=== PATIENT | female | born 1990 | race American Indian/Alaskan Native ===

== ENCOUNTER 2018-11-27 23:06 | Emergency (ER) | payer MEDICAID ==
[2018-11-28] MEDS ORDERED: TYLENOL PO ONE (02:44)
[2018-11-28] MEDS ORDERED: TYLENOL ONE (02:45)
[2018-11-28] MEDS ORDERED: TETRACAINE 0.5% OU ONE (02:46)
[2018-11-28] MEDS ORDERED: FUL-GLO OP ONE (02:46)
[2018-11-28] MEDS ORDERED: BSS OU ONE (02:46)
[2018-11-28] MEDS ORDERED: TESSALON PERLES PO ONE (05:01)
--- NOTE | 2018-11-28 05:05 | Emergency Department Report ---
[facility] Chief Complaint: Eye Problems Stated Complaint: EYE PAIN COUGH Time Seen by Provider: 11/28/18 04:45 Duration: 3 Days Side: Right Severity: mild Symptoms: Yes Eye Itching, Yes Eye Redness, Yes Mucous Drainage, Yes Preceding URI, No Eye Pain, No Purulent Drainage, No Blurred Vision, No Contact Lens Use, No Trauma, No Fever Other History: 28-year-old -[place] female comes in with right eye redness and irritation. Patient also complains of cough that she's had for 1 week. She reports she's tried [id number] Robitussin. She denies any fever chills no nausea no vomiting. She does admit to increased oral mucous. She reports she felt that this what triggers her cough. ED Review of Systems ROS: Stated complaint: EYE PAIN COUGH Other details as noted in HPI Comment: All other systems reviewed and negative Eyes: eye discharge Respiratory: cough ED Past Medical Hx - Past Medical History Previous Medical History?: No - Surgical History Past Surgical History?: Yes Additional Surgical History: C section - Social History Smoking Status: Current Every Day Smoker - Medications Home Medications: Home Medications Medication Instructions Recorded Confirmed Last Taken Type Benzonatate [Tessalon Perle] 100 mg PO TID PRN #30 capsule 11/28/18 Unknown Rx Cetirizine HCl/Pseudoephedrine 1 each PO BID #30 tab.er.12h 11/28/18 Unknown Rx [Zyrtec-D Tablet] Erythromycin [Erythromycin Ophth 1 applic OD QID 10 Days #1 tube 11/28/18 Unknown Rx Oint] [facility] Exam - Exam General: Vital signs noted. No distress. Alert and acting appropriately. Eye Exam: Right Injection, Right Mucous Discharge, Right Fluorescein Uptake, Neither Abnormal Pupil, Neither Photophobia HEENT: No Nasal Congestion, No Pharyngeal Erythema Remainder of HEENT: Normal Lungs: Yes Cough, No Good Air Exchange, No Wheezes, No Stridor ED Course Vital Signs 11/28/18 00:09 Temperature 98.6 F Pulse Rate 103 H Respiratory 18 Rate Blood Pressure 167/100 O2 Sat by Pulse 100 Oximetry ED Medical Decision Making - Medical Decision Making Patient has been evaluated by this provider in fast track. Discussed patient she has a conjunctivitis and a cough. We'll discharge patient home on Zyrtec study, erythromycin ophthalmic ointment and Tessalon Perles. Advised patient to follow up with a primary care provider if her symptoms persist or gets worse. Critical care attestation.: If time is entered above; I have spent that time in minutes in the direct care of this critically ill patient, excluding procedure time. ED Disposition Clinical Impression: Cough Conjunctivitis Qualifiers: Conjunctivitis type: acute Acute conjunctivitis type: unspecified Laterality: right Qualified Code(s): H10.31 - Unspecified acute conjunctivitis, right eye Disposition: - TO HOME OR SELFCARE Is pt being admited?: No Does the pt Need Aspirin: No Condition: Stable Instructions: Conjunctivitis (ED), Antitussives (By mouth) Additional Instructions: Please take medication as prescribed. Follow up with her primary care provider if his symptoms persist or gets worse. Please wash her hands prior to and after applying eye medication Prescriptions: Benzonatate [Tessalon Perle] 100 mg PO TID PRN #30 capsule PRN Reason: Cough Cetirizine HCl/Pseudoephedrine [Zyrtec-D Tablet] 1 each PO BID #30 tab.er.12h Erythromycin [Erythromycin Ophth Oint] 1 applic OD QID 10 Days #1 tube Referrals: ANUSHA JOHN [Other] - 3-5 Days Forms: Work/School Release Form(ED)
[2018-11-28 05:14] VITALS: BP 107/62
== END 2018-11-28 05:20 | disposition home or self-care (01) ==
LOC: ED 23:06
DX: H10.31 Unspecified acute conjunctivitis, right eye (principal); R05 Cough; F17.200 Nicotine dependence, unspecified, uncomplicated
CPT/HCPCS: 99282

== ENCOUNTER 2019-06-08 05:09 | Emergency (ER) | payer SELFPAY ==
[2019-06-08 05:16] VITALS: BP 113/85
--- NOTE | 2019-06-08 07:38 | Emergency Department Report ---
HPI - General Chief Complaint: Sore Throat Time Seen by Provider: 06/08/19 07:33 - HPI HPI: 28-year-old female presents to the emergency department with 2 complaints. First, the patient has been having a sore throat over the past 2-3 days. She is able to swallow but has some pain with doing so. Denies any fever. She says that she gets strep throat about once per year. No recent travel or sick contacts at home. She has not taken anything for her symptoms prior to presentation. Secondly, the patient complains of some exposure to trichomoniasis from a sexual partner recently. She denies any discharge but says that she does have an odor "down there." She has an [employer] and a primary care physician, but says that it takes weeks to be seen. ED Past Medical Hx - Past Medical History Previous Medical History?: No - Surgical History Past Surgical History?: Yes Additional Surgical History: C section - Social History Smoking Status: Current Every Day Smoker Substance Use Type: Alcohol - Medications Home Medications: Home Medications Medication Instructions Recorded Confirmed Last Taken Type Benzonatate [Tessalon Perle] 100 mg PO TID PRN #30 capsule 11/28/18 Unknown Rx Cetirizine HCl/Pseudoephedrine 1 each PO BID #30 tab.er.12h 11/28/18 Unknown Rx [Zyrtec-D Tablet] Erythromycin [Erythromycin Ophth 1 applic OD QID 10 Days #1 tube 11/28/18 Unknown Rx Oint] Azithromycin [Zithromax Tri-Ousmane] 500 mg PO QDAY #5 tablet 06/08/19 Unknown Rx metroNIDAZOLE [Flagyl] 500 mg PO Q12HR #14 tab 06/08/19 Unknown Rx ED Review of Systems ROS: Stated complaint: SORE THROAT Other details as noted in HPI Comment: All other systems reviewed and negative Constitutional: denies: chills, fever ENT: throat pain. denies: ear pain Respiratory: denies: cough, shortness of breath Gastrointestinal: denies: abdominal pain, nausea, vomiting Genitourinary: dysuria. denies: discharge, abnormal menses Skin: denies: rash, lesions Physical Exam - Physical Exam Vital Signs: Vital Signs 06/08/19 05:15 Temperature 98.6 F Pulse Rate 96 H Respiratory 18 Rate Blood Pressure 113/85 O2 Sat by Pulse 98 Oximetry Physical Exam: GENERAL: The patient is well-developed well-nourished. HENT: Normocephalic. Atraumatic. Patient has moist mucous membranes. There is bilateral tonsillar hypertrophy, erythema and bilateral exudates. No drooling or trismus. EYES: Extraocular motions are intact. Pupils equal reactive to light bilaterally. NECK: Supple. Trachea is midline. CHEST/LUNGS: Clear to auscultation. There is no respiratory distress noted. HEART/CARDIOVASCULAR: Regular. There is no tachycardia. There is no murmur. ABDOMEN: There is no abdominal distention. SKIN: Skin is warm and dry. NEURO: The patient is awake, alert, and oriented. The patient is cooperative. Normal speech. MUSCULOSKELETAL: There is no tenderness or deformity. There is no evidence of acute injury. ED Course Vital Signs 06/08/19 05:15 Temperature 98.6 F Pulse Rate 96 H Respiratory 18 Rate Blood Pressure 113/85 O2 Sat by Pulse 98 Oximetry ED Medical Decision Making - Medical Decision Making Patient presents with a few days of a sore throat. She does have tonsillar hypertrophy, erythema and bilateral exudates that appear consistent with strep pharyngitis. No drooling or trismus. No change in her voice. Vital signs stable including being afebrile. She'll be treated with azithromycin for the presumed strep pharyngitis. The patient also describes some exposure to a male partner with trichomoniasis. She denies any current discharge but says that she has an odor in the vagina and some mild burning with urination. She will be treated with Flagyl and we discussed safe sex practices. She is aware of the adverse reaction of Flagyl with alcohol of any quantity. She has follow-up with primary care and [employer] and has been encouraged to follow up with them regarding these symptoms and diagnosis. She will return to the ER with any worsening of her symptoms or any acute distress. - Differential Diagnosis strep pharyngitis, viral pharyngitis, mononucleosis, UTI, trichomoniasis Critical Care Time: No Critical care attestation.: If time is entered above; I have spent that time in minutes in the direct care of this critically ill patient, excluding procedure time. ED Disposition Clinical Impression: Strep pharyngitis, Exposure to trichomonas Disposition: DC-01 TO HOME OR SELFCARE Is pt being admited?: No Condition: Stable Instructions: Trichomoniasis (ED), Strep Throat (ED) Additional Instructions: Please follow-up with your primary care physician and [employer] in the next few days. Return to the emergency Department with any worsening of her symptoms or any acute distress. You have been prescribed azithromycin for your strep pharyngitis. You have been prescribed Flagyl/metronidazole for your exposure to trichomoniasis. This medication has a very bad reaction if mixed with alcohol of any quantity, so avoid alcohol for up to 2 days after finishing the medication. Prescriptions: metroNIDAZOLE [Flagyl] 500 mg PO Q12HR #14 tab Azithromycin [Zithromax Tri-Ousmane] 500 mg PO QDAY #5 tablet Referrals: PRIMARY CARE, [Primary Care Provider] - 2-3 Days Time of Disposition: 07:38
== END 2019-06-08 07:49 | disposition home or self-care (01) ==
LOC: ED 05:09
DX: J02.0 Streptococcal pharyngitis (principal); Z20.89 Contact with and (suspected) exposure to other communicable diseases; F17.200 Nicotine dependence, unspecified, uncomplicated
CPT/HCPCS: 99282